=== PATIENT | male | born 1975 | race Two or more races ===

== ENCOUNTER 2020-09-03 12:50 | Emergency (ER) | payer SELFPAY ==
[~2020-09-03] VITALS: Ht 193 cm; Wt 86.0 kg
[2020-09-03 16:10] LABS: CLARITY URINE CLEAR (CLEAR); COLOR URINE YELLOW (YELLOW); KETONES URINE NEGATIVE (NEGATIVE); LEUKOCYTE ESTERASE URINE NEGATIVE (NEGATIVE); NITRITE URINE NEGATIVE (NEGATIVE); OCCULT BLOOD URINE 1+ (NEGATIVE); PH URINE 5.5 (4.5-8.0); PROTEIN URINE 2+ (NEGATIVE); SPECIFIC GRAVITY URINE 1.022 (1.005-1.030); UROBILINOGEN URINE 0.2 E.U./dL (0.2-1.0)
[2020-09-03] MEDS ORDERED: KETOROLAC 30MG/ML VIAL IM ONE (16:15)
[2020-09-03 16:19] VITALS: BP 153/90
[2020-09-03 16:31] LABS: BASOPHILS % 0.9 % (0.0-2.0); HEMATOCRIT. 40.4 % (42.0-52.0); HEMOGLOBIN. 13.5 g/dL (14.0-18.0); MEAN CORPUSCULAR HEMOGLOBIN 28.6 pg (28.0-32.0); MEAN CORPUSCULAR VOLUME 85.4 fL (80.0-94.0); MEAN PLATELET VOLUME 8.4 fl (7.4-10.4); MONOCYTES % 11.4 % (2.0-8.0); NEUTROPHILS % 42.7 % (40.0-76.0); PLATELET 257 x1000/uL (130-400); RED BLOOD CELL COUNT 4.73 mill/uL (4.7-6.1); RED CELL DISTRIBUTION WIDTH 13.1 % (11.6-14.6)
[2020-09-03 16:36] LABS: CHLORIDE 105 mEq/L (98-107)
[2020-09-03] MEDS ORDERED: CEPH500C2 MT (16:42)
== END 2020-09-03 17:03 | disposition home or self-care (01) ==
LOC: ER 12:50
DX: E11.621 Type 2 diabetes mellitus with foot ulcer (principal); L97.518 Non-pressure chronic ulcer of other part of right foot with other specified severity; L08.89 Other specified local infections of the skin and subcutaneous tissue; I10 Essential (primary) hypertension; Z91.013 Allergy to seafood
CPT/HCPCS: 36415; 80053; 81003; 82962; 85025; 96372; 99283; A4217; J1885; Z7610